=== PATIENT | male | born 2000 | race Caucasian/White ===

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

== ENCOUNTER 2019-02-11 20:14 | Emergency (ER) | payer SELFPAY ==
--- NOTE | 2019-02-11 20:46 | ERPHSYRPT ---
- History of Present Illness Source: patient, police Exam Limitations: no limitations Patient Subjective Stated Complaint: police states pt is here for medical clearence Triage Nursing Assessment: pt ambulated into the ER, pt was accompied by police , pt is tachycardic, pt is hypertensive, pt pupils are 3 mm, PERRL, active bowel sounds in all quads, pt strengths are equal and strong Physician History: usp clearance. smoked marijuana. HR was in the 140's initially. says he was nervous. currently down to 90-100's whehn I examined him. denies any illegal drugs, alcohol Timing/Duration: today Severity: mild Associated Symptoms: denies symptoms Allergies/Adverse Reactions: No Known Drug Allergies Allergy (Verified 02/11/19 20:29) Home Medications: No Reportable Medications [No Reported Medications] 01/12/17 [History] Hx Tetanus, Diphtheria Vaccination/Date Given: Yes Hx Influenza Vaccination/Date Given: No Hx Pneumococcal Vaccination/Date Given: No - Review of Systems Constitutional: No Symptoms Eyes: No Symptoms Ears, Nose, & Throat: No Symptoms Respiratory: No Symptoms Cardiac: No Symptoms Abdominal/Gastrointestinal: No Symptoms Genitourinary Symptoms: No Symptoms Musculoskeletal: No Symptoms Skin: No Symptoms - Past Medical History Pertinent Past Medical History: Yes Neurological History: No Pertinent History ENT History: No Pertinent History Cardiac History: Other Respiratory History: Asthma Endocrine Medical History: No Pertinent History Musculoskeletal History: No Pertinent History GI Medical History: No Pertinent History History: No Pertinent History Psycho-Social History: Depression, Other Male Reproductive Disorders: No Pertinent History 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, illegal drug use and repeated suicide attempts - Past Surgical History Past Surgical History: No Neuro Surgical History: No Pertinent History Cardiac: No Pertinent History Respiratory: No Pertinent History Gastrointestinal: No Pertinent History Genitourinary: No Pertinent History Musculoskeletal: No Pertinent History Male Surgical History: No Pertinent History Other Surgical History: TUBES IN EARS - Social History Smoking Status: Current every day smoker How long have you smoked: 8 Exposure to second hand smoke: No Drug Use: marijuana Patient Lives Alone: No - Nursing Vital Signs Nursing Vital Signs: Initial Vital Signs Temperature 98.2 F 02/11/19 20:18 Pulse Rate 140 H 02/11/19 20:18 Respiratory Rate 18 02/11/19 20:18 Blood Pressure 157/92 02/11/19 20:18 O2 Sat by Pulse Oximetry 99 02/11/19 20:18 Pain Scale Pain Intensity 0 - Physical Exam General Appearance: no apparent distress Eye Exam: PERRL/EOMI, eyes nml inspection Ears, Nose, Throat Exam: normal ENT inspection Neck Exam: normal inspection Respiratory Exam: normal breath sounds, other Cardiovascular Exam: other (slightly tachcardic) Gastrointestinal/Abdomen Exam: normal bowel sounds Neurologic Exam: alert, oriented x 3, cooperative, 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
[2019-02-11 21:41] VITALS: BP 130/81; PULSE 104; O2SAT 97
== END 2019-02-11 21:47 | disposition home or self-care (01) ==
LOC: ED 20:14
DX: F19.20 Other psychoactive substance dependence, uncomplicated (principal)
CPT/HCPCS: 99283

== ENCOUNTER 2020-08-04 07:40 | Emergency (ER) | payer OTHER ==
[2020-08-04] MEDS ORDERED: Sodium Chloride 0.9% 1000 ML 1,000 ML IV STA (08:03)
[2020-08-04] MEDS ORDERED: Sodium Chloride 0.9% 1000 ML 1,000 ML ONE (08:14)
[2020-08-04 08:30] LABS: Absolute Neutrophil Ct (ANC) 8.54 (1.4-6.9); BASOPHIL % 0.4 % (0.0-0.4); Basophil (Absolute #) 0.04 (0-0.4); Eosinophil % 2.4 % (0.00-5.0); Eosinophil (Absolute #) 0.27 (0-0.5); Hematocrit 45.5 % (42-50); Hemoglobin 16.2 gm/dl (12.5-18.0); Lymphocyte (Absolute #) 1.32 (1.0-4.6); Lymphocytes % 11.7 % (24.0-44.0); Mean Cell Volume 82.9 fl (78-100); Mean Corpuscular Hemoglobin 29.5 pg (26-32); Mean Corpuscular Hgb Concent. 35.6 g/dl (32-36); Mean Platelet Volume 9.4 fl (7.5-11.0); Monocyte (Absolute #) 1.11 (0.0-1.3); Monocytes % 9.8 % (0.0-12.0); Neutrophil % 75.7 % (36.0-66.0); Platelet Count 253 K/mm3 (150-450); Red Blood Count 5.49 M/mm3 (4.1-5.6); Red Cell Distribution Width 12.4 % (11.5-14.0); White Blood Count 11.3 K/mm3 (4.0-10.5)
--- NOTE | 2020-08-04 08:35 | XRAY ---
Exam: AP upright portable chest film from 08/04/2020. Comparison: Two-view chest series from 01/12/2017. Indication: Chest pain. Findings: 2 AP films were obtained. The heart size and contour are normal. The andrews and mediastinal structures appear unremarkable. The lungs are well inflated. Pulmonary vascularity is normal. No air space infiltrates, pneumothorax, or pleural fluid is seen. No acute osseous process is seen. Impression: 1. No acute cardiopulmonary process is seen, no change from 01/12/2017.
[2020-08-04 08:36] LABS: INR 1.25 (0.8-3.0); PROTIME 14.8 SECONDS (9.4-12.5)
[2020-08-04 08:42] LABS: ALBUMIN 5.2 g/dL (3.5-5.0); ALKALINE PHOSPHATASE 89 U/L (38-126); AMYLASE 53 U/L (30-110); ANION GAP 16.7 MEQ/L (5-15); BLOOD UREA NITROGEN 14 mg/dL (9-20); CHLORIDE 100 mmol/L (98-107); Calcium 10.4 mg/dL (8.4-10.2); Carbon Dioxide 26 mmol/L (22-30); Creatinine 1 0.93 mg/dL (0.66-1.25); EST GLOMERULAR FILTRATION RATE > 60.0 ML/MIN; ETHYL ALCOHOL < 10 mg/dL (0-10); Glucose 119 mg/dL (74-106); LIPASE 21 U/L (23-300); MAGNESIUM 2.1 mg/dL (1.6-2.3); Potassium 3.5 mmol/L (3.5-5.1); SGOT/AST 35 U/L (17-59); SGPT/ALT 15 U/L (0-50); SODIUM 140 mmol/L (137-145); Total Protein 8.3 g/dL (6.3-8.2)
[2020-08-04 08:51] LABS: ACETAMINOPHEN < 10 ug/ml (10-30); SALICYLATE < 1.0 mg/dL (2-20)
--- NOTE | 2020-08-04 09:14 | ERPHSYRPT ---
- History of Present Illness Time Seen by Provider: 08/04/20 07:50 Source: patient, family Exam Limitations: other (Probable substance abuse) Patient Subjective Stated Complaint: pt here for blister to finger, he feels like he has worms, Triage Nursing Assessment: pt walked in, alert, he is here with hes grandma that states he has a new baby at home and is not sleeping, he is anxious with flight of ideas Physician History: Patient is a 20-year-old male who presents with multiple complaints including the feeling that there is a tapeworm inside his vein of his left arm. He has a self-inflicted blistery bite to the left index finger his family reports he is not slept for 6 days he does have a 6-day old infant at home and the is being treated for preeclampsia. He also complains of pain in the wrist which ov er 3 hours. Has migrated up to the neck has been lightheaded and dizzy he also complains of headache and various other complaints. He does have a history of substance abuse. Methamphetamine type behavior is noted. Timing/Duration: today Quality: throbbing Severity of Pain-Max: moderate Severity of Pain-Current: moderate Recent Head Trauma: frequent headaches Associated Symptoms: dizziness, light-headedness, nausea/vomiting, neck pain Previous symptoms: same symptoms as today Allergies/Adverse Reactions: No Known Drug Allergies Allergy (Verified 08/04/20 07:53) Home Medications: No Reportable Medications [No Reported Medications] 01/12/17 [History] Hx Tetanus, Diphtheria Vaccination/Date Given: No Hx Influenza Vaccination/Date Given: No Hx Pneumococcal Vaccination/Date Given: No Immunizations Up to Date: Yes Travel Risk - International Travel Have you traveled outside of the country in past 3 weeks: No - Coronavirus Screening Are you exhibiting any of the following symptoms?: No Close contact with a COVID-19 positive Pt in past 14-21 Days: No - Vaccine Status Have you recieved a Covid-19 vaccination: No - Review of Systems Constitutional: Weakness, No Fever, No Chills Eyes: No Symptoms Ears, Nose, & Throat: No Symptoms Respiratory: Dyspnea, No Cough Cardiac: Chest Pain, No Edema, No Syncope Abdominal/Gastrointestinal: Nausea, No Abdominal Pain, No Vomiting, No Diarrhea Genitourinary Symptoms: No Dysuria Musculoskeletal: Joint Pain, Other (Extremity), No Back Pain, No Neck Pain Skin: Pruritis, Other (Patient points to very small red skin lesions the nature of which is undetermined), No Rash Neurological: Dizziness, Headache, Parasthesia, No Focal Weakness, No Sensory Changes Psychological: No Symptoms, Drug Abuse, Anxiety Endocrine: No Symptoms All Other Systems: Reviewed and Negative - Past Medical History Pertinent Past Medical History: Yes Neurological History: No Pertinent History ENT History: No Pertinent History Cardiac History: Other Respiratory History: Asthma Endocrine Medical History: No Pertinent History Musculoskeletal History: No Pertinent History GI Medical History: No Pertinent History History: No Pertinent History Psycho-Social History: Depression, Other Male Reproductive Disorders: No Pertinent History 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, illegal drug use and repeated suicide attempts - Past Surgical History Past Surgical History: No Neuro Surgical History: No Pertinent History Cardiac: No Pertinent History Respiratory: No Pertinent History Gastrointestinal: No Pertinent History Genitourinary: No Pertinent History Musculoskeletal: No Pertinent History Male Surgical History: No Pertinent History Other Surgical History: TUBES IN EARS - Social History Smoking Status: Current every day smoker How long have you smoked: 8 Exposure to second hand smoke: Yes Drug Use: marijuana Patient Lives Alone: No - Nursing Vital Signs Nursing Vital Signs: Initial Vital Signs Temperature 97.4 F 08/04/20 07:41 Pulse Rate 110 H 08/04/20 07:41 Respiratory Rate 18 08/04/20 07:41 Blood Pressure 155/98 08/04/20 07:41 O2 Sat by Pulse Oximetry 98 08/04/20 07:41 Pain Scale Pain Intensity 5 - Physical Exam General Appearance: mild distress Eye Exam: PERRL/EOMI Ears, Nose, Throat Exam: normal ENT inspection, moist mucous membranes Neck Exam: normal inspection, supple, full range of motion, No meningismus Respiratory Exam: normal breath sounds, lungs clear Cardiovascular Exam: regular rate/rhythm, normal heart sounds Gastrointestinal/Abdominal Exam: soft, No tenderness, No distention Back Exam: normal inspection, normal range of motion Extremity Exam: normal inspection, normal range of motion Mental Status Exam: alert, 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 x 3, 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 Exam: normal hearing Coordination/Gait Exam: normal cerebellar function Motor/Sensory Exam: no motor deficit, no sensory deficit Skin Exam: normal color, warm, dry, rash SpO2: 98 - Course Nursing assessment & vital signs reviewed: Yes EKG Interpreted by Me: RATE (102), Sinus Rhythm, Sinus Tach, NORMAL AXIS, NORMAL INTERVALS, NORMAL QRS - Radiology Exams Chest X-ray Interpretation: Negative Ordered Tests: Active Orders 24 hr Category Date Time Status EKG-ER Only STAT Care 08/04/20 08:03 Active IV Insertion STAT Care 08/04/20 08:03 Active CHEST 1 VIEW (PORTABLE) Stat Exams 08/04/20 08:04 Completed ACETAMINOPHEN Stat Lab 08/04/20 08:20 Completed AMYLASE Stat Lab 08/04/20 08:20 Completed CBC W DIFF Stat Lab 08/04/20 08:20 Completed CMP Stat Lab 08/04/20 08:20 Completed ETHYL ALCOHOL Stat Lab 08/04/20 08:20 Completed LIPASE Stat Lab 08/04/20 08:20 Completed Lactic Acid Stat Lab 08/04/20 08:03 Completed MAGNESIUM Stat Lab 08/04/20 08:20 Completed PROTIME WITH INR Stat Lab 08/04/20 08:20 Completed SALICYLATE Stat Lab 08/04/20 08:20 Completed TROPONIN Q3H Lab 08/04/20 08:20 Completed TROPONIN Q3H Lab 08/04/20 11:25 Completed TROPONIN Q3H Lab 08/04/20 14:15 Ordered TROPONIN Q3H Lab 08/04/20 17:15 Ordered TROPONIN Q3H Lab 08/04/20 20:15 Ordered UA W/RFX UR CULTURE Stat Lab 08/04/20 10:08 Completed Urine Triage Profile Stat Lab 08/04/20 10:08 Completed Medication Summary Discontinued Medications Generic Name Dose Route Start Last Admin Trade Name Freq PRN Reason Stop Dose Admin Sodium Chloride 1,000 mls @ 999 mls/hr 08/04/20 08:03 08/04/20 11:15 Sodium Chloride 0.9% 1000 Ml IV 08/04/20 09:03 Infused .Q1H1M STA Infusion Sodium Chloride Confirm 08/04/20 08:14 Sodium Chloride 0.9% 1000 Ml Administered 08/04/20 08:15 Dose 1,000 mls @ ud .ROUTE .STK-MED ONE Lab/Rad Data: Laboratory Result Diagrams 08/04/20 08:20 08/04/20 08:20 Laboratory Results 08/04/20 08/04/20 08/04/20 Range/Units 11:25 10:08 10:08 WBC (4.0-10.5) K/mm3 RBC (4.1-5.6) M/mm3 Hgb (12.5-18.0) gm/dl Hct (42-50) % MCV (78-100) fl MCH (26-32) pg MCHC (32-36) g/dl RDW (11.5-14.0) % Plt Count (150-450) K/mm3 MPV (7.5-11.0) fl Gran % (36.0-66.0) % Eos # (Auto) (0-0.5) Absolute Lymphs (auto) (1.0-4.6) Absolute Monos (auto) (0.0-1.3) Lymphocytes % (24.0-44.0) % Monocytes % (0.0-12.0) % Eosinophils % (0.00-5.0) % Basophils % (0.0-0.4) % Absolute Granulocytes (1.4-6.9) Basophils # (0-0.4) PT (9.4-12.5) SECONDS INR (0.8-3.0) Sodium (137-145) mmol/L Potassium (3.5-5.1) mmol/L Chloride (98-107) mmol/L Carbon Dioxide (22-30) mmol/L Anion Gap (5-15) MEQ/L BUN (9-20) mg/dL Creatinine (0.66-1.25) mg/dL Estimated GFR ML/MIN Glucose (74-106) mg/dL Lactic Acid (0.4-2.0) Calcium (8.4-10.2) mg/dL Magnesium (1.6-2.3) mg/dL Total Bilirubin (0.2-1.3) mg/dL AST (17-59) U/L ALT (0-50) U/L Alkaline Phosphatase (38-126) U/L Troponin I < 0.012 (0.000-0.034) ng/mL Serum Total Protein (6.3-8.2) g/dL Albumin (3.5-5.0) g/dL Amylase (30-110) U/L Lipase (23-300) U/L Urine Color YELLOW (YELLOW) Urine Appearance CLEAR (CLEAR) Urine pH 6.0 (5-6) Ur Specific [place] 1.024 (1.005-1.025) Urine Protein NEGATIVE (Negative) Urine Ketones TRACE (NEGATIVE) Urine Blood NEGATIVE (0-5) Gerard/ul Urine Nitrite NEGATIVE (NEGATIVE) Urine Bilirubin NEGATIVE (NEGATIVE) Urine Urobilinogen 2 (0-1) mg/dL Ur Leukocyte Esterase NEGATIVE (NEGATIVE) Urine WBC (Auto) NONE (0-5) /HPF Urine RBC (Auto) NONE (0-2) /HPF U Epithel Cells (Auto) NONE (FEW) /HPF Urine Bacteria (Auto) NONE SEEN (NEGATIVE) /HPF Urine Mucus (Auto) SLIGHT (NEGATIVE) /HPF Urine Culture Reflexed NO (NO) Urine Glucose NEGATIVE (NEGATIVE) mg/dL Salicylates (2-20) mg/dL Urine Opiates Level NEGATIVE (NEGATIVE) Ur Methadone NEGATIVE (NEGATIVE) Acetaminophen (10-30) ug/ml Urine Barbiturates NEGATIVE (NEGATIVE) Ur Phencyclidine (PCP) NEGATIVE (NEGATIVE) Urine Amphetamine POSITIVE (NEGATIVE) U Benzodiazepine Level NEGATIVE (NEGATIVE) Urine Cocaine NEGATIVE (NEGATIVE) Urine Marijuana (THC) POSITIVE (NEGATIVE) Ethyl Alcohol (0-10) mg/dL 08/04/20 08/04/20 08/04/20 Range/Units 08:20 08:20 08:20 WBC (4.0-10.5) K/mm3 RBC (4.1-5.6) M/mm3 Hgb (12.5-18.0) gm/dl Hct (42-50) % MCV (78-100) fl MCH (26-32) pg MCHC (32-36) g/dl RDW (11.5-14.0) % Plt Count (150-450) K/mm3 MPV (7.5-11.0) fl Gran % (36.0-66.0) % Eos # (Auto) (0-0.5) Absolute Lymphs (auto) (1.0-4.6) Absolute Monos (auto) (0.0-1.3) Lymphocytes % (24.0-44.0) % Monocytes % (0.0-12.0) % Eosinophils % (0.00-5.0) % Basophils % (0.0-0.4) % Absolute Granulocytes (1.4-6.9) Basophils # (0-0.4) PT 14.8 H (9.4-12.5) SECONDS INR 1.25 (0.8-3.0) Sodium (137-145) mmol/L Potassium (3.5-5.1) mmol/L Chloride (98-107) mmol/L Carbon Dioxide (22-30) mmol/L Anion Gap (5-15) MEQ/L BUN (9-20) mg/dL Creatinine (0.66-1.25) mg/dL Estimated GFR ML/MIN Glucose (74-106) mg/dL Lactic Acid (0.4-2.0) Calcium (8.4-10.2) mg/dL Magnesium (1.6-2.3) mg/dL Total Bilirubin (0.2-1.3) mg/dL AST (17-59) U/L ALT (0-50) U/L Alkaline Phosphatase (38-126) U/L Troponin I < 0.012 (0.000-0.034) ng/mL Serum Total Protein (6.3-8.2) g/dL Albumin (3.5-5.0) g/dL Amylase (30-110) U/L Lipase (23-300) U/L Urine Color (YELLOW) Urine Appearance (CLEAR) Urine pH (5-6) Ur Specific [place] (1.005-1.025) Urine Protein (Negative) Urine Ketones (NEGATIVE) Urine Blood (0-5) Gerard/ul Urine Nitrite (NEGATIVE) Urine Bilirubin (NEGATIVE) Urine Urobilinogen (0-1) mg/dL Ur Leukocyte Esterase (NEGATIVE) Urine WBC (Auto) (0-5) /HPF Urine RBC (Auto) (0-2) /HPF U Epithel Cells (Auto) (FEW) /HPF Urine Bacteria (Auto) (NEGATIVE) /HPF Urine Mucus (Auto) (NEGATIVE) /HPF Urine Culture Reflexed (NO) Urine Glucose (NEGATIVE) mg/dL Salicylates < 1.0 L (2-20) mg/dL Urine Opiates Level (NEGATIVE) Ur Methadone (NEGATIVE) Acetaminophen < 10 L (10-30) ug/ml Urine Barbiturates (NEGATIVE) Ur Phencyclidine (PCP) (NEGATIVE) Urine Amphetamine (NEGATIVE) U Benzodiazepine Level (NEGATIVE) Urine Cocaine (NEGATIVE) Urine Marijuana (THC) (NEGATIVE) Ethyl Alcohol (0-10) mg/dL 08/04/20 08/04/20 08/04/20 Range/Units 08:20 08:20 08:03 WBC 11.3 H (4.0-10.5) K/mm3 RBC 5.49 (4.1-5.6) M/mm3 Hgb 16.2 (12.5-18.0) gm/dl Hct 45.5 (42-50) % MCV 82.9 (78-100) fl MCH 29.5 (26-32) pg MCHC 35.6 (32-36) g/dl RDW 12.4 (11.5-14.0) % Plt Count 253 (150-450) K/mm3 MPV 9.4 (7.5-11.0) fl Gran % 75.7 H (36.0-66.0) % Eos # (Auto) 0.27 (0-0.5) Absolute Lymphs (auto) 1.32 (1.0-4.6) Absolute Monos (auto) 1.11 (0.0-1.3) Lymphocytes % 11.7 L (24.0-44.0) % Monocytes % 9.8 (0.0-12.0) % Eosinophils % 2.4 (0.00-5.0) % Basophils % 0.4 (0.0-0.4) % Absolute Granulocytes 8.54 H (1.4-6.9) Basophils # 0.04 (0-0.4) PT (9.4-12.5) SECONDS INR (0.8-3.0) Sodium 140 (137-145) mmol/L Potassium 3.5 (3.5-5.1) mmol/L Chloride 100 (98-107) mmol/L Carbon Dioxide 26 (22-30) mmol/L Anion Gap 16.7 H (5-15) MEQ/L BUN 14 (9-20) mg/dL Creatinine 0.93 (0.66-1.25) mg/dL Estimated GFR > 60.0 ML/MIN Glucose 119 H (74-106) mg/dL Lactic Acid 0.9 (0.4-2.0) Calcium 10.4 H (8.4-10.2) mg/dL Magnesium 2.1 (1.6-2.3) mg/dL Total Bilirubin 1.50 H (0.2-1.3) mg/dL AST 35 (17-59) U/L ALT 15 (0-50) U/L Alkaline Phosphatase 89 (38-126) U/L Troponin I (0.000-0.034) ng/mL Serum Total Protein 8.3 H (6.3-8.2) g/dL Albumin 5.2 H (3.5-5.0) g/dL Amylase 53 (30-110) U/L Lipase 21 L (23-300) U/L Urine Color (YELLOW) Urine Appearance (CLEAR) Urine pH (5-6) Ur Specific [place] (1.005-1.025) Urine Protein (Negative) Urine Ketones (NEGATIVE) Urine Blood (0-5) Gerard/ul Urine Nitrite (NEGATIVE) Urine Bilirubin (NEGATIVE) Urine Urobilinogen (0-1) mg/dL Ur Leukocyte Esterase (NEGATIVE) Urine WBC (Auto) (0-5) /HPF Urine RBC (Auto) (0-2) /HPF U Epithel Cells (Auto) (FEW) /HPF Urine Bacteria (Auto) (NEGATIVE) /HPF Urine Mucus (Auto) (NEGATIVE) /HPF Urine Culture Reflexed (NO) Urine Glucose (NEGATIVE) mg/dL Salicylates (2-20) mg/dL Urine Opiates Level (NEGATIVE) Ur Methadone (NEGATIVE) Acetaminophen (10-30) ug/ml Urine Barbiturates (NEGATIVE) Ur Phencyclidine (PCP) (NEGATIVE) Urine Amphetamine (NEGATIVE) U Benzodiazepine Level (NEGATIVE) Urine Cocaine (NEGATIVE) Urine Marijuana (THC) (NEGATIVE) Ethyl Alcohol < 10 (0-10) mg/dL - Progress Progress: improved Air Movement: good Blood Culture(s) Obtained: No Antibiotics given: No - Departure Departure Disposition: Home Clinical Impression: Methamphetamine use Condition: Stable Critical Care Time: No Referrals: ERI[facility]O PFEIFFER [Primary Care Provider] - Instructions: Polysubstance Abuse (DC)
[2020-08-04 10:30] LABS: Appearance CLEAR (CLEAR); Bilirubin NEGATIVE (NEGATIVE); Blood NEGATIVE Ery/ul (0-5); Glucose NEGATIVE (NEGATIVE); Ketones TRACE (NEGATIVE); Leukocyte Esterase NEGATIVE (NEGATIVE); Mucus SLIGHT /HPF (NEGATIVE); Nitrite NEGATIVE (NEGATIVE); Protein,Urine Dip NEGATIVE (Negative); Specific Gravity 1.024 (1.005-1.025); Urobilinogen 2 mg/dL (0-1)
[2020-08-04 10:34] LABS: Bacteria NONE SEEN /HPF (NEGATIVE)
[2020-08-04 10:48] LABS: Barbiturate,Urine NEGATIVE (NEGATIVE); Benzodiazepine,Urine NEGATIVE (NEGATIVE); Cocaine,Urine NEGATIVE (NEGATIVE); Methadone,Urine NEGATIVE (NEGATIVE); Opiate,Urine NEGATIVE (NEGATIVE); PCP,Urine NEGATIVE (NEGATIVE); THC,Urine POSITIVE (NEGATIVE)
[2020-08-04 12:02] LABS: Amphetamine,Urine POSITIVE (NEGATIVE)
[2020-08-04 12:22] VITALS: O2SAT 98
[2020-08-04 12:46] VITALS: BP 124/82; PULSE 100
== END 2020-08-04 12:46 | disposition home or self-care (01) ==
LOC: ED 07:40
DX: F15.10 Other stimulant abuse, uncomplicated (principal); R42 Dizziness and giddiness; R11.2 Nausea with vomiting, unspecified; M54.2 Cervicalgia; R07.89 Other chest pain
CPT/HCPCS: 36000; 36415; 71045; 80053; 80307; 81001; 82150; 83605; 83690; 83735; 84484; 85025; 85610; 93005; 99284; G0480

== ENCOUNTER 2020-09-10 12:06 | Emergency (ER) | payer OTHER ==
[2020-09-10] MEDS ORDERED: Kenalog-10 MG/1 ML 10 ML VIAL IM ONE (12:31)
--- NOTE | 2020-09-10 12:45 | ERPHSYRPT ---
- History of Present Illness Time Seen by Provider: 09/10/20 12:12 Source: patient Exam Limitations: no limitations Patient Subjective Stated Complaint: Pt states "I have been working in the yard and I am not sure what we got into but it itches and I have scratched so much it is bleeding." Triage Nursing Assessment: Pt presented alert and oriented X 3, skin pwd. Pt ambulates with an upright steady gait, able to speak in full clear sentences pt has red rash on arms and body, pt scratces often and has caused bleeding. Physician History: 20 years old male presented in the ER with chief complaint of exposure to plant allergen after he was working in the yard 2 days ago. Initially it started as a small bullae/blisters with scratching and now has some skin break because of repeated scratching. More in the upper extremities especially in the left arm. Timing/Duration: day(s) (3), constant, gradual onset, worse Quality: burning, itchy Severity: moderate Location: extremities Possible Causes: exposure to allergen Modifying Factors: Worsens With: scratching Associated Symptoms: blisters, change in skin texture, rash, No difficulty breathing, No edema, No fever, No flushing, No headache, No hives, No nasal congestion, No numbness, No pallor, No paresthesia, No petechiae, No sore throat, No swelling/mass/lumps, No tingling Allergies/Adverse Reactions: No Known Drug Allergies Allergy (Verified 08/04/20 07:53) Hx Tetanus, Diphtheria Vaccination/Date Given: Yes Hx Influenza Vaccination/Date Given: No Hx Pneumococcal Vaccination/Date Given: No Immunizations Up to Date: Yes Travel Risk - International Travel Have you traveled outside of the country in past 3 weeks: No - Coronavirus Screening Are you exhibiting any of the following symptoms?: No Close contact with a COVID-19 positive Pt in past 14-21 Days: No - Vaccine Status Have you recieved a Covid-19 vaccination: No - Review of Systems Constitutional: No Symptoms Eyes: No Symptoms Ears, Nose, & Throat: No Symptoms Respiratory: No Symptoms Cardiac: No Symptoms Musculoskeletal: No Symptoms Skin: Rash Neurological: No Symptoms Psychological: No Symptoms Endocrine: No Symptoms - Past Medical History Pertinent Past Medical History: Yes Neurological History: No Pertinent History ENT History: No Pertinent History Cardiac History: Other Respiratory History: Asthma Endocrine Medical History: No Pertinent History Musculoskeletal History: No Pertinent History GI Medical History: No Pertinent History History: No Pertinent History Psycho-Social History: Depression, Other Male Reproductive Disorders: No Pertinent History 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, illegal drug use and repeated suicide attempts - Past Surgical History Past Surgical History: No Neuro Surgical History: No Pertinent History Cardiac: No Pertinent History Respiratory: No Pertinent History Gastrointestinal: No Pertinent History Genitourinary: No Pertinent History Musculoskeletal: No Pertinent History Male Surgical History: No Pertinent History Other Surgical History: TUBES IN EARS - Social History Smoking Status: Current every day smoker How long have you smoked: years Exposure to second hand smoke: Yes Drug Use: marijuana Patient Lives Alone: No - Nursing Vital Signs Nursing Vital Signs: Initial Vital Signs Temperature 98.6 F 09/10/20 12:12 Pulse Rate 94 H 09/10/20 12:12 Respiratory Rate 20 09/10/20 12:12 Blood Pressure 135/66 09/10/20 12:12 O2 Sat by Pulse Oximetry 95 09/10/20 12:12 Pain Scale Pain Intensity 2 - Physical Exam General Appearance: no apparent distress, alert Eye Exam: PERRL/EOMI, eyes nml inspection Ears, Nose, Throat Exam: normal ENT inspection, pharynx normal Neck Exam: normal inspection, non-tender, full range of motion Respiratory Exam: normal breath sounds, lungs clear Back Exam: normal inspection, normal range of motion Extremity Exam: normal range of motion, pelvis stable Neurologic Exam: alert, oriented x 3, cooperative Skin Exam: rash (Multiple itch lucas with skin break especially in the left forearm with minimal erythema around. No induration. Mild increased temperature.) SpO2 Interpretation: normal SpO2: 99 O2 Delivery: Room Air Ordered Tests: Medication Summary Generic Name Dose Route Start Last Admin Trade Name Freq PRN Reason Stop Dose Admin Triamcinolone Acetonide 60 mg 09/10/20 12:31 Kenalog-10 Mg/1 Ml 10 Ml Vial IM 09/10/20 12:32 1XONLY ONE - Progress Progress: unchanged Progress Note: 09/10/20 12:41 Is given Kenalog shot. We will continue with topical and oral steroids along with antihistamines. Do not think needs antibiotic at this point. Recommended outpatient follow-up. Counseled pt/family regarding: diagnosis, need for follow-up - Departure Departure Disposition: Home Clinical Impression: Plant irritant contact dermatitis Condition: Stable Critical Care Time: No Referrals: ERIBERTO PFEIFFER [Primary Care Provider] - Follow Up with PCP/3 days Instructions: Poison [place], Poison [place], Poison [place] (DC) Additional Instructions: Stay away from yard plants. Use calamine lotion. Use Benadryl as needed. Apply topical steroid twice a day. Follow-up with primary care physician for reevaluation. Return to ER for worsening itching, redness, discharge or if develop swelling/fever chills etc. Prescriptions: Diphenhydramine HCl 25 mg [Benadryl 25 mg Capsule] 25 mg PO Q4H PRN PRN #20 capsule PRN Reason: Allergies Clobetasol Propionate/Emoll [Clobetasol Emollient 0.05% Crm] 30 gm TP BID 7 Days #30 cream..g. Prednisone 10 mg [Deltasone 10 mg] 10 mg PO DAILY #40 tablet
[2020-09-10] MEDS ORDERED: Kenalog-40 IM ONE (12:54)
[2020-09-10 13:12] VITALS: BP 130/60; PULSE 80; O2SAT 98
== END 2020-09-10 13:53 | disposition home or self-care (01) ==
LOC: ED 12:06
DX: L24.7 Irritant contact dermatitis due to plants, except food (principal)
CPT/HCPCS: 96372; 99283; J3301

== ENCOUNTER 2020-09-16 23:26 | Emergency (ER) | payer OTHER ==
[2020-09-16 23:43] VITALS: O2SAT 100
--- NOTE | 2020-09-17 00:24 | ERPHSYRPT ---
- History of Present Illness Time Seen by Provider: 09/17/20 00:20 Source: patient Exam Limitations: no limitations Patient Subjective Stated Complaint: pt states he was banging his head on the wall to try to either knock himself out or try to kill himself. states he also tried to hang himself using the wraps that were covering his arms. Triage Nursing Assessment: pt alert and oriented, answers questions approp. pt arrive per ambulance. ambulates into room with steady gait noted. respirations nonlabored with lungs cta. laceration approx 2.5 cm to forehead, bleeding controlled. pupils equal and reactive. bilat upper and lower ext strength equal and wnl. Physician History: Patient is a 20-year-old male who has a long history of recurrent depressions and suicidal ideations and suicide attempts. He is presently in penitentiary for driving under the influence of methamphetamine with the child in the car recently. He while in penitentiary have his expressed suicidal ideation has been seen and observed banging his head into the wall and he tried to hang himself with dressings applied to his arms to treat his contact dermatitis. He has been inpatient at [facility] on at least 2 occasions. Timing/Duration: today Severity of Symptoms-Max: moderate Severity of Symptoms-Current: moderate Context related to: other (Go problems) Suicidal thoughts: attempt Associated Symptoms: depressed Previous symptoms: same symptoms as today Allergies/Adverse Reactions: No Known Drug Allergies Allergy (Verified 09/16/20 23:54) Hx Tetanus, Diphtheria Vaccination/Date Given: Yes Hx Influenza Vaccination/Date Given: No Hx Pneumococcal Vaccination/Date Given: No Immunizations Up to Date: Yes Travel Risk - International Travel Have you traveled outside of the country in past 3 weeks: No - Coronavirus Screening Are you exhibiting any of the following symptoms?: No Close contact with a COVID-19 positive Pt in past 14-21 Days: No - Vaccine Status Have you recieved a Covid-19 vaccination: No - Past Medical History Pertinent Past Medical History: Yes Neurological History: No Pertinent History ENT History: No Pertinent History Cardiac History: Other Respiratory History: Asthma Endocrine Medical History: No Pertinent History Musculoskeletal History: No Pertinent History GI Medical History: No Pertinent History History: No Pertinent History Psycho-Social History: Depression, Other Male Reproductive Disorders: No Pertinent History 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, illegal drug use and repeated suicide attempts - Past Surgical History Past Surgical History: Yes Neuro Surgical History: No Pertinent History Cardiac: No Pertinent History Respiratory: No Pertinent History Gastrointestinal: No Pertinent History Genitourinary: No Pertinent History Musculoskeletal: No Pertinent History Male Surgical History: No Pertinent History Other Surgical History: TUBES IN EARS - Social History Smoking Status: Current every day smoker How long have you smoked: years Exposure to second hand smoke: Yes Drug Use: marijuana Patient Lives Alone: No - Review of Systems Constitutional: No Fever, No Chills Eyes: No Symptoms Ears, Nose, & Throat: No Symptoms Respiratory: No Cough, No Dyspnea Cardiac: No Chest Pain, No Edema, No Syncope Abdominal/Gastrointestinal: No Abdominal Pain, No Nausea, No Vomiting, No Diarrhea Genitourinary Symptoms: No Dysuria Musculoskeletal: No Back Pain, No Neck Pain Skin: No Rash Neurological: No Dizziness, No Focal Weakness, No Sensory Changes Psychological: Drug Abuse, Depression, Suicidal Ideations Endocrine: No Symptoms All Other Systems: Reviewed and Negative - Nursing Vital Signs Nursing Vital Signs: Initial Vital Signs Temperature 97.6 F 09/16/20 23:28 Pulse Rate 55 L 09/16/20 23:28 Respiratory Rate 16 09/16/20 23:28 Blood Pressure 140/84 09/16/20 23:28 O2 Sat by Pulse Oximetry 100 09/16/20 23:28 Pain Scale Pain Intensity 6 - Physical Exam General Appearance: mild distress Eyes, Ears, Nose, Throat Exam: normal ENT inspection, moist mucous membranes Neck Exam: normal inspection, non-tender, supple Respiratory Exam: normal breath sounds, lungs clear, No respiratory distress Cardiovascular Exam: regular rate/rhythm, No edema Gastrointestinal/Abdominal Exam: soft, No tenderness, No distention Extremities Exam: normal inspection, normal range of motion, No evidence of injury, No edema Current Suicidality: has suicide plan Neurological Exam: alert, care management specialist II-XII nml as tested, oriented x 3 Appearance: no memory impairment, impaired insight Behavior/Eye Contact/Speech: good eye contact, decreased rate of speech Skin Exam: normal color, warm, dry, other (There are some superficial abrasions to the forehead from where he struck his head against the cell wall. There is also contact dermatitis noted on both upper extremities.), No rash SpO2 Interpretation: normal SpO2: 100 O2 Delivery: Room Air - Course Nursing assessment & vital signs reviewed: Yes - CT Exams Head CT Interpretation: Negative (Negative on preliminary exam by the ED physician for any fracture or intracranial bleeding.) Ordered Tests: Active Orders 24 hr Category Date Time Status HEAD WITHOUT CONTRAST [CT] Stat Exams 09/17/20 00:48 Taken ACETAMINOPHEN Stat Lab 09/17/20 00:44 Completed CBC W DIFF Stat Lab 09/17/20 00:24 Completed CMP Stat Lab 09/17/20 00:44 Completed ETHYL ALCOHOL Stat Lab 09/17/20 00:44 Completed SALICYLATE Stat Lab 09/17/20 00:44 Completed Urine Triage Profile Stat Lab 09/17/20 00:24 Ordered Lab/Rad Data: Laboratory Result Diagrams 09/17/20 00:24 09/17/20 00:44 Laboratory Results 09/17/20 09/17/20 Range/Units 00:44 00:24 WBC 10.7 H (4.0-10.5) K/mm3 RBC 5.39 (4.1-5.6) M/mm3 Hgb 16.1 (12.5-18.0) gm/dl Hct 46.3 (42-50) % MCV 85.9 (78-100) fl MCH 29.9 (26-32) pg MCHC 34.8 (32-36) g/dl RDW 12.6 (11.5-14.0) % Plt Count 257 (150-450) K/mm3 MPV 9.2 (7.5-11.0) fl Gran % 71.6 H (36.0-66.0) % Eos # (Auto) 0.27 (0-0.5) Absolute Lymphs (auto) 1.78 (1.0-4.6) Absolute Monos (auto) 0.98 (0.0-1.3) Lymphocytes % 16.6 L (24.0-44.0) % Monocytes % 9.1 (0.0-12.0) % Eosinophils % 2.5 (0.00-5.0) % Basophils % 0.2 (0.0-0.4) % Absolute Granulocytes 7.68 H (1.4-6.9) Basophils # 0.02 (0-0.4) Sodium 140 (137-145) mmol/L Potassium 3.8 (3.5-5.1) mmol/L Chloride 103 (98-107) mmol/L Carbon Dioxide 28 (22-30) mmol/L Anion Gap 13.4 (5-15) MEQ/L BUN 15 (9-20) mg/dL Creatinine 0.80 (0.66-1.25) mg/dL Estimated GFR > 60.0 ML/MIN Glucose 88 (74-106) mg/dL Calcium 10.1 (8.4-10.2) mg/dL Total Bilirubin 0.70 (0.2-1.3) mg/dL AST 16 L (17-59) U/L ALT 13 (0-50) U/L Alkaline Phosphatase 73 (38-126) U/L Serum Total Protein 7.3 (6.3-8.2) g/dL Albumin 4.6 (3.5-5.0) g/dL Salicylates < 1.0 L (2-20) mg/dL Acetaminophen < 10 L (10-30) ug/ml Ethyl Alcohol < 10 (0-10) mg/dL - Progress Progress: improved - Departure Departure Disposition: Long Term/Penitentiary Clinical Impression: Forehead contusion Condition: Stable Critical Care Time: No Referrals: ERIBERTO PFEIFFER [Primary Care Provider] - Instructions: Contusion (DC)
[2020-09-17 00:44] LABS: Absolute Neutrophil Ct (ANC) 7.68 (1.4-6.9); BASOPHIL % 0.2 % (0.0-0.4); Basophil (Absolute #) 0.02 (0-0.4); Eosinophil % 2.5 % (0.00-5.0); Eosinophil (Absolute #) 0.27 (0-0.5); Hematocrit 46.3 % (42-50); Hemoglobin 16.1 gm/dl (12.5-18.0); Lymphocyte (Absolute #) 1.78 (1.0-4.6); Lymphocytes % 16.6 % (24.0-44.0); Mean Cell Volume 85.9 fl (78-100); Mean Corpuscular Hemoglobin 29.9 pg (26-32); Mean Corpuscular Hgb Concent. 34.8 g/dl (32-36); Mean Platelet Volume 9.2 fl (7.5-11.0); Monocyte (Absolute #) 0.98 (0.0-1.3); Monocytes % 9.1 % (0.0-12.0); Neutrophil % 71.6 % (36.0-66.0); Platelet Count 257 K/mm3 (150-450); Red Blood Count 5.39 M/mm3 (4.1-5.6); Red Cell Distribution Width 12.6 % (11.5-14.0); White Blood Count 10.7 K/mm3 (4.0-10.5)
[2020-09-17 00:53] LABS: ACETAMINOPHEN < 10 ug/ml (10-30); ALBUMIN 4.6 g/dL (3.5-5.0); ALKALINE PHOSPHATASE 73 U/L (38-126); ANION GAP 13.4 MEQ/L (5-15); BLOOD UREA NITROGEN 15 mg/dL (9-20); CHLORIDE 103 mmol/L (98-107); Calcium 10.1 mg/dL (8.4-10.2); Carbon Dioxide 28 mmol/L (22-30); EST GLOMERULAR FILTRATION RATE > 60.0 ML/MIN; ETHYL ALCOHOL < 10 mg/dL (0-10); Glucose 88 mg/dL (74-106); Potassium 3.8 mmol/L (3.5-5.1); SALICYLATE < 1.0 mg/dL (2-20); SGOT/AST 16 U/L (17-59); SGPT/ALT 13 U/L (0-50); SODIUM 140 mmol/L (137-145); Total Protein 7.3 g/dL (6.3-8.2)
[2020-09-17 02:37] VITALS: BP 138/68; PULSE 61
--- NOTE | 2020-09-17 06:46 | XRAY ---
Indication: Head injury following suicide attempt. Multiple contiguous axial images obtained through the head without contrast. Comparison: December 04, 2013. Normal appearing brain parenchyma, ventricles, and bony calvarium. Impression: Continued normal CT head without contrast exam. Comment: Preliminary interpretation made by [facility]. No critical discrepancy.
== END 2020-09-17 02:15 | disposition home or self-care (01) ==
LOC: EEVIPCON 23:26 → ED 23:26
DX: W22.01XA Walked into wall, initial encounter (principal); Y93.9 Activity, unspecified; Y92.149 Unspecified place in prison as the place of occurrence of the external cause; Y99.8 Other external cause status
CPT/HCPCS: 36415; 70450; 80053; 80307; 85025; 99284; G0480